=== PATIENT | female | born 1985 | race African-American/Black ===

== ENCOUNTER 2017-01-30 19:26 | Outpatient (CLI) | payer SELFPAY ==
[2017-01-30 20:27] VITALS: BP 129/80
== END 2017-01-30 20:32 | disposition home or self-care (01) ==
LOC: TRG 19:26
PROVIDERS: ATTEND Obstetrics & Gynecology
DX: O48.0 Post-term pregnancy (principal); Z3A.40 40 weeks gestation of pregnancy
CPT/HCPCS: 59025

== ENCOUNTER 2017-01-31 02:41 | Inpatient (IN) | payer OTHER ==
[2017-01-31] MEDS ORDERED: MINERAL OIL PO PRN (03:20)
[2017-01-31] MEDS ORDERED: ZOFRAN IV PRN ×2 (03:20→08:01)
[2017-01-31] MEDS ORDERED: XYLOCAINE 2% INFILTRATI ONE (03:20)
[2017-01-31] MEDS ORDERED: BRETHINE IVP PRN (03:20)
[2017-01-31] MEDS ORDERED: STADOL IV PRN (03:20)
[2017-01-31] MEDS ORDERED: NARCAN 0.4 MG/1 ML IV PRN (03:20)
[2017-01-31] MEDS ORDERED: BRETHINE SUB-Q PRN (03:20)
[2017-01-31] MEDS ORDERED: SUBLIMAZE IV PRN (03:20)
[2017-01-31] MEDS ORDERED: ePHEDrine SULFATE IV PRN ×2 (03:20→04:56)
--- NOTE | 2017-01-31 03:24 | History and Physical Report ---
History of Present Illness Date of examination: 01/31/17 Chief complaint: Labor History of present illness: Pt is a 31yo HF EDC 01/30/17; EGA 40 1/7 weeks presents complaining of RUC' s q 3-4 mins. She received care with Dr Mary Hendrickson since 16 weeks and course has been complicated by Gestational DM for which she is followed by Perinatology ([facility]). records are available and GBS is Negative. Past History Past Medical History: diabetes (Gestational DM) Past Surgical History: no surgical history Family/Genetic History: none Social history: no significant social history, - Obstetrical History Expected Date of Delivery: 01/30/17 Actual Gestation: 40 Week(s) 1 Day(s) : 3 Medications and Allergies Allergies Allergy/AdvReac Type Severity Reaction Status Date / Time No Known Allergies Allergy Verified 01/31/17 03:28 Review of Systems All systems: negative - Vital Signs Vital signs: Vital Signs Pulse Pulse Ox 78 93 01/31/17 02:59 01/31/17 02:59 Temp Pulse Resp BP Pulse Ox 97.9 F 85 18 145/75 96 01/31/17 03:13 01/31/17 03:15 01/31/17 03:13 01/31/17 03:00 01/31/17 03:15 - Physical Exam Breasts: Positive: deferred Cardiovascular: Regular rate Lungs: Positive: Clear to auscultation Abdomen: Positive: normal appearance Genitourinary (Female): Positive: normal external genitalia Vagina: Positive: normal moisture Uterus: Positive: enlarged Anus/Rectum: Positive: normal perianal skin Extremities: Positive: normal - Obstetrical FHR: category 1 Uterine Contraction Monitor Mode: External Cervical Dilatation: 6 Cervical Effacement Percentage: 90 station: -1 Uterine Contraction Pattern: Regular Uterine Tone Measurement Phase: Contraction Uterine Contraction Intensity: Moderate Results Result Diagrams: 01/31/17 03:30 All other labs normal. Assessment and Plan - Patient Problems (1) 40 weeks gestation of Onset Date: 01/31/17 Current Visit: Yes Status: Acute Plan to address problem: A: IUP @ 40 1/7 weeks in labor GDM - stable P: Admit to L&D for expectant vaginal delivery BS management (2) Gestational diabetes mellitus (GDM) Onset Date: 01/31/17 Current Visit: Yes Status: Acute Qualifiers: Gestational diabetes mellitus control: diet-controlled Trimester: third trimester Qualified Code(s): O24.410 - Gestational diabetes mellitus in , diet controlled
[2017-01-31 03:44] LABS: Hematocrit 35.6 % (30.3-42.9); Hemoglobin 11.7 gm/dl (10.1-14.3); Mean Corpuscular HGB Conc 33 % (30-34); Mean Corpuscular Hemoglobin 26 pg (28-32); Mean Corpuscular Volume 80 fl (79-97); Platelet Count 159 K/mm3 (140-440); Red Blood Count 4.43 M/mm3 (3.65-5.03); Red Cell Distribution Width 14.2 % (13.2-15.2); White Blood Count 7.7 K/mm3 (4.5-11.0)
[2017-01-31] MEDS: LACTATED RINGERS 1,000 ML IV SCH ×2 (03:51→04:25)
[2017-01-31] MEDS ORDERED: PITOCin/NS 20 UNIT/1000ML DRIP 20 UNITS/1,000 ML BAG IV SCH ×2 (04:00→09:00)
[2017-01-31] MEDS ORDERED: PITOCin/NS 30 UNIT/500ML 30 UNITS/500 ML BAG IV SCH (04:00)
[2017-01-31] MEDS ORDERED: ePHEDrine SULFATE ONE (04:13)
[2017-01-31] MEDS ORDERED: NARCAN 2 MG/2 ML IV PRN (04:56)
--- NOTE | 2017-01-31 04:56 | Anesthesia Consultation ---
Anesthesia Consult and Med Hx Date of service: 01/31/17 - Airway Anesthetic Teeth Evaluation: Good ROM Head & Neck: Adequate Mental/Hyoid Distance: Adequate Mallampati Class: Class II Intubation Access Assessment: Probably Good - Pulmonary Exam CTA: Yes - Cardiac Exam Cardiac Exam: RRR - Pre-Operative Health Status ASA Pre-Surgery Classification: ASA2 Proposed Anesthetic Plan: Epidural - Pulmonary Hx Asthma: No COPD: No Hx Pneumonia: No - Cardiovascular System Hx Hypertension: No - Central Nervous System Hx Seizures: No Hx Psychiatric Problems: No - Endocrine Hx Renal Disease: No Hx End Stage Renal Disease: No Hx Hypothyroidism: No Hx Hyperthyroidism: No - Hematic Hx Anemia: No Hx Sickle Cell Disease: No - Other Systems Hx Alcohol Use: No
[2017-01-31] MEDS ORDERED: fentaNYL-BUPIV 2 MCG/ML-0.125% 200 MCG/100 ML BAG EPIDURAL SCH (05:00)
--- NOTE | 2017-01-31 07:46 | Procedure Note ---
OB Delivery Note - Delivery Date of Delivery: 01/31/17 Surgeon: ROOPA ESQUIVEL Estimated blood loss: 300cc - Vaginal Delivery presentation: vertex Delivery position: OA Delivery induction: none Delivery augmentation: rupture of membranes, pitocin Delivery monitor: external FHT, external uterine Route of delivery: Delivery placenta: spontaneous Delivery cord: 3 umbilical vessels Episiotomy: none Delivery laceration: 2nd degree (perineal) Delivery repair: vicryl Anesthesia: epidural Delivery comments: delivered OA and placed on Mom's chest for [id number] bonding and delayed cord clamping. - Infant A at 1 minute: 8 at 5 minutes: 9 Gender: Male (4872gms)
[2017-01-31] MEDS ORDERED: PHENERGAN PO PRN (08:01)
[2017-01-31] MEDS ORDERED: LANSINOH TP PRN (08:01)
[2017-01-31] MEDS ORDERED: TUCKS PAD TP PRN (08:01)
[2017-01-31] MEDS ORDERED: NORCO 5/325 PO PRN (08:01)
[2017-01-31] MEDS ORDERED: PHENERGAN PR PRN (08:01)
[2017-01-31] MEDS ORDERED: MILK OF MAGNESIA PO PRN (08:01)
[2017-01-31] MEDS ORDERED: TYLENOL PO PRN (08:01)
[2017-01-31] MEDS ORDERED: DULCOLAX PR PRN (08:01)
[2017-01-31] MEDS ORDERED: BENADRYL PO PRN (08:01)
[2017-01-31] MEDS ORDERED: SODIUM CHLORIDE FLUSH SYRINGE 10 ML IV NR (09:00)
[2017-01-31] MEDS: COLACE PO SCH ×2 (10:00→21:40)
[2017-01-31] MEDS: FEOSOL PO SCH ×2 (12:00→21:40)
[2017-01-31] MEDS: PRENATAL VITAMIN PO SCH (12:00)
[2017-01-31] MEDS: MOTRIN PO SCH ×3 (12:00→21:41)
[2017-01-31] MEDS ORDERED: FLUARIX QUAD 2016-2017(36 MOS+) IM ONE (12:00)
[2017-01-31] MEDS ORDERED: PITOCin/NS 20 UNIT/1000ML DRIP 20,000 MILLIUNITS/1,000 ML BAG IV ONE (12:08)
[2017-01-31 20:56] LABS: Hematocrit 28.1 % (30.3-42.9); Hemoglobin 9.2 gm/dl (10.1-14.3)
[2017-01-31] MEDS: SENOKOT S PO SCH (21:41)
[2017-02-01] MEDS: MOTRIN PO SCH ×4 (02:57→21:08)
[2017-02-01] MEDS ORDERED: BOOSTRIX IM ONE (06:00)
[2017-02-01] MEDS ORDERED: M-M-R II VACCINE SUB-Q ONE (08:01)
[2017-02-01] MEDS: FEOSOL PO SCH ×2 (10:15→21:03)
[2017-02-01] MEDS: PRENATAL VITAMIN PO SCH (10:15)
[2017-02-01] MEDS: COLACE PO SCH ×2 (10:15→21:03)
--- NOTE | 2017-02-01 10:59 | Progress Note ---
Assessment and Plan - Patient Problems (1) 40 weeks gestation of Onset Date: 01/31/17 Current Visit: Yes Status: Resolved (2) Gestational diabetes mellitus (GDM) Onset Date: 01/31/17 Current Visit: Yes Status: Resolved Qualifiers: Gestational diabetes mellitus control: diet-controlled Trimester: third trimester Qualified Code(s): O24.410 - Gestational diabetes mellitus in , diet controlled (3) (normal spontaneous vaginal delivery) Onset Date: 02/01/17 Current Visit: Yes Status: Resolved Plan to address problem: A: S/P - PPD #1 Doing well GDM - stable P: May go home tomorrow Subjective - Subjective Date of service: 02/01/17 Principal diagnosis: s/p - PPD #1 Interval history: Pt is feeling well without complaints. Bleeding improved. Patient reports: appetite normal, voiding normally, pain well controlled, flatus , ambulating normally : doing well, bottle feeding Objective - Vital Signs Latest vital signs: Vital Signs Temp Pulse Resp BP 02/01/17 08:38 98.3 F 84 16 119/62 02/01/17 00:00 98.6 F 77 16 134/74 01/31/17 19:30 98.6 F 77 16 127/72 01/31/17 16:45 98.7 F 78 18 122/72 Intake and Output 01/31/17 02/01/17 02/01/17 22:59 06:59 14:59 Intake Total 1880 300 Output Total 500 Balance 1380 300 Intake: IV 1000 PITOCin/NS 20 UNIT/1000ML 1000 DRIP 20,000 milliunits In 1,000 ml As IV .[facility] Rx#:[id number] Oral 480 Intake, Free Water 400 300 Output: Urine 500 Void 500 Other: Total, Intake Amount 480 Total, Output Amount 500 # Voids Void 1 - Exam Breasts: Present: deferred Cardiovascular: Present: Regular rate Lungs: Present: Clear to auscultation Abdomen: Present: normal appearance Uterus: Present: normal, firm, fundal height below umbilicus Extremities: Present: normal - Labs Labs: Abnormal lab results 01/31/17 01/31/17 Range/Units 20:41 21:48 Hgb 9.2 L (10.1-14.3) gm/dl Hct 28.1 L D (30.3-42.9) % POC Glucose 108 H (70-105) Laboratory Tests 01/31/17 01/31/17 01/31/17 03:12 03:30 03:30 WBC 7.7 RBC 4.43 Hgb 11.7 Hct 35.6 MCV 80 MCH 26 L MCHC 33 RDW 14.2 Plt Count 159 POC Glucose 94 Blood Type A POSITIVE Antibody Screen TNR MIGNON Antibody Screen Negative 01/31/17 01/31/17 01/31/17 19:13 20:41 21:48 WBC RBC Hgb 9.2 L Hct 28.1 L D MCV MCH MCHC RDW Plt Count POC Glucose 89 108 H Blood Type Antibody Screen MIGNON Antibody Screen 02/01/17 07:33 WBC RBC Hgb Hct MCV MCH MCHC RDW Plt Count POC Glucose 75 Blood Type Antibody Screen MIGNON Antibody Screen
--- NOTE | 2017-02-01 11:04 | Discharge Summary ---
Providers - Providers Date of Admission: 01/31/17 03:30 Date of discharge: 02/02/17 Attending physician: ROOPA ESQUIVEL Primary care physician: ROOPA ESQUIVEL Hospitalization Reason for admission: active labor, IUP at term Delivery: Episiotomy: none Laceration: 2nd degree (perineal) Incision: normal Other procedures: none complications: none Discharge diagnosis: IUP at term delivered [place] baby: male Hospital course: Unremarkable. Condition at discharge: Good Disposition: DISCHARGED TO HOME OR SELFCARE - Discharge Diagnoses (1) 40 weeks gestation of Status: Resolved (2) Gestational diabetes mellitus (GDM) Status: Resolved Qualifiers: Gestational diabetes mellitus control: diet-controlled Trimester: third trimester Qualified Code(s): O24.410 - Gestational diabetes mellitus in , diet controlled (3) (normal spontaneous vaginal delivery) Status: Resolved Plan - Discharge Medications Prescriptions: Ferrous Sulfate [Feosol 325 MG tab] 325 mg PO BID #60 tablet Ibuprofen [Motrin 600 MG tab] 600 mg PO Q6H #30 tablet Vit-Fe Fumar-FA [ Vitamin] 1 each PO QDAY #30 tablet - Provider Discharge Summary Activity: routine, no sex for 6 weeks, no heavy lifting 4 weeks, no strenuous exercise Diet: routine Instructions: routine Additional instructions: [] Smoking cessation referral if applicable(refer to patient education folder for contact #) [] Refer to [facility] Booklet Call your doctor immediately for: * Fever > 100.5 * Heavy vaginal bleeding ( >1 pad per hour) * Severe persistent headache * Shortness of breath * Reddened, hot, painful area to leg or breast * Drainage or odor from incision. * Keep incision clean and dry at all times and follow doctor's instructions regarding bathing/showering - Follow up plan Follow up: ROOPA ESQUIVEL MD [Primary Care Provider] - 6 Weeks
[2017-02-01] MEDS ORDERED: FLUARIX QUAD 2016-2017(36 MOS+) IM ONE ×2 (12:00→17:45)
[2017-02-01] MEDS: SENOKOT S PO SCH (21:04)
[2017-02-02] MEDS: MOTRIN PO SCH (03:08)
[2017-02-02 12:45] VITALS: BP 130/80
== END 2017-02-02 11:30 | disposition home or self-care (01) | DRG 775 ==
LOC: TRG 02:41 → LD 03:30 → OB 09:10
PROVIDERS: ADMIT Obstetrics & Gynecology; ATTEND Obstetrics & Gynecology
PROC: 10E0XZZ Delivery of Products of Conception, External Approach (ICD-10-PCS; principal; 2017-01-31)
PROC: 0KQM0ZZ Repair Perineum Muscle, Open Approach (ICD-10-PCS; 2017-01-31)
PROC: 3E0S3CZ (ICD-10-PCS; 2017-01-31)
PROC: 00HU33Z Insertion of Infusion Device into Spinal Canal, Percutaneous Approach (ICD-10-PCS; 2017-01-31)
DX: O24.410 Gestational diabetes mellitus in pregnancy, diet controlled (principal); O70.1 Second degree perineal laceration during delivery; Z3A.40 40 weeks gestation of pregnancy; Z37.0 Single live birth
CPT/HCPCS: 36415; 82962; 85014; 85018; 85027; 86850; 86900; 86901; 90471; 90686; 90715; 99211; G0463; J2590; J3010; J7120

== ENCOUNTER 2019-11-19 07:37 | Inpatient (IN) | payer MEDICAID, OTHER ==
[2019-11-19] MEDS ORDERED: LACTATED RINGERS 1,000 ML ONE (08:24)
[2019-11-19] MEDS ORDERED: TERBUTALINE 1 MG/1 ML INJ SUB-Q PRN (08:33)
[2019-11-19] MEDS ORDERED: AMPICILLIN/NS 2 GM/100 ML 2 GM/100 ML BAG IV ONE (08:33)
[2019-11-19] MEDS ORDERED: ePHEDrine SULFATE 50 MG/1 ML INJ IV PRN (08:33)
[2019-11-19] MEDS ORDERED: LIDOCAINE (2%) 20 MG/1 ML VIAL 20 ML MDV INFILTRATI ONE (08:33)
[2019-11-19] MEDS ORDERED: fentaNYL 100 MCG/2 ML INJ IV PRN (08:33)
--- NOTE | 2019-11-19 08:39 | History and Physical Report ---
History of Present Illness Date of examination: 11/19/19 Date of admission: 11/19/2019. Chief complaint: Labor History of present illness: 34 year old presents to L&D in active advanced labor (completely dilated upon arrival). Patient denies leaking of fluid or vaginal bleeding. Patient states she received care at [facility] but recor ds are not available. Patient states she has not been to any of visits for the past 2 months. She states her last ultrasound was done at 23 weeks gestation and was normal. EDC 11/27/2019. Patient states she took her sugar test at her last visit and that it was normal. Patient denies any complications with this . She reports she has had 3 normal vaginal deliveries, all of large babies (largest 10 lb. 6 oz.), without complications. Patient states she is not taking any medications. She denies drug allergies. 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 denies: smoking, alcohol abuse, prescription drug abuse, IV drug use - Obstetrical History Expected Date of Delivery: 11/27/19 Actual Gestation: 38 Week(s) 6 Day(s) : 4 Para: 3 Hx # Term Pregnancies: 3 Number of Pregnancies: 0 Spontaneous Abortions: 0 Induced : 0 Number of Living Children: 3 Medications and Allergies Allergies Allergy/AdvReac Type Severity Reaction Status Date / Time No Known Allergies Allergy Verified 01/31/17 03:28 Home Medications Medication Instructions Recorded Confirmed Last Taken Type Ferrous Sulfate [Feosol 325 MG tab] 325 mg PO BID #60 tablet 02/01/17 Unknown Rx Ibuprofen [Motrin 600 MG tab] 600 mg PO Q6H #30 tablet 02/01/17 Unknown Rx Vit-Fe Fumar-FA [ 1 each PO QDAY #30 tablet 02/01/17 Unknown Rx Vitamin] Active Meds: Active Medications Ephedrine Sulfate (Ephedrine Sulfate) 10 mg IV Q2M PRN PRN Reason: Hypotension Fentanyl (Sublimaze) 100 mcg IV Q2H PRN PRN Reason: Labor Pain Oxytocin/Sodium Chloride (Pitocin/Ns 20 Unit/1000ml Drip) 20 units in 1,000 mls @ 125 mls/hr IV DIRECT SIRI Lactated Ringer's (Lactated Ringers) 1,000 mls @ 125 mls/hr IV DIRECT SIRI Ampicillin Sodium (Ampicillin/Ns 2 Gm/100 Ml) 2 gm in 100 mls @ 100 mls/hr IV ONCE ONE; Protocol Stop: 11/19/19 09:32 Lidocaine (Xylocaine 2%) 20 ml INFILTRATI ONCE ONE Stop: 11/19/19 08:34 Terbutaline Sulfate (Brethine) 0.25 mg SUB-Q ONCE PRN PRN Reason: Hyperstimulation/Hypertonicity Review of Systems All systems: negative (contractions and urge to push) - Vital Signs Vital signs: Vital Signs Temp Pulse Resp BP Pulse Ox 98.0 F 94 H 22 120/73 100 11/19/19 08:06 11/19/19 08:06 11/19/19 08:06 11/19/19 08:06 11/19/19 08:06 Temp Pulse Resp BP Pulse Ox 98.0 F 91 H 22 141/72 100 11/19/19 08:06 11/19/19 08:20 11/19/19 08:06 11/19/19 08:20 11/19/19 08:06 - Physical Exam Abdomen: Positive: normal appearance, soft. Negative: distention, tenderness, g uarding, rigidity Genitourinary (Female): Positive: normal external genitalia, normal perenium. Negative: perineal/vulvar lesions (no lesions noted on inspection with bright light) Vagina: Positive: normal moisture Uterus: Positive: enlarged (size greater than dates; US ordered and MD notified) Anus/Rectum: Positive: normal perianal skin - Obstetrical FHR: category 1 Uterine Contraction Monitor Mode: External Cervical Dilatation: 10 Cervical Effacement Percentage: 100 station: -1, BBOW Uterine Contraction Pattern: Regular Uterine Contraction Intensity: Strong/Firm Results Result Diagrams: 11/19/19 08:44 All other labs normal. Assessment and Plan A: at 38 weeks, 6 days gestation. Active advanced labor (fully dilated with urge to push upon arrival). GBS unknown. No records available. Poor care (noncompliant with keeping visits). P: Admit. Request records. Draw labs. GBS prophylaxis. US for EFW and placental location. Consulted with Dr. Becerra re: this patient and all of the above and possibility of a large baby with unknown EFW (US pending) but feels large per Leopolds maneuvers. US obtained and EFW reported to me at 09:39. EFW [address] Becerra and asked him to come to hospital for delivery. Informed patient.
[2019-11-19] MEDS ORDERED: LACTATED RINGERS 1,000 ML IV SCH (09:00)
[2019-11-19] MEDS ORDERED: OXYTOCIN 20 UNIT/1000ML DRIP 20 UNITS/1,000 ML BAG IV SCH (09:00)
[2019-11-19 09:12] LABS: Hemoglobin 11.9 gm/dl (10.1-14.3); Mean Corpuscular HGB Conc 33 % (30-34); Mean Corpuscular Volume 81 fl (79-97); Platelet Count 154 K/mm3 (140-440); Red Blood Count 4.46 M/mm3 (3.65-5.03); Red Cell Distribution Width 13.8 % (13.2-15.2)
[2019-11-19] MEDS ORDERED: miSOPROStol 200 MCG TAB ONE (09:14)
[2019-11-19] MEDS ORDERED: MINERAL OIL 30 ML ORAL LIQD ONE (09:15)
[2019-11-19 10:23] LABS: Hepatitis C Virus Antibody Non-Reactive (NonReactive)
--- NOTE | 2019-11-19 10:24 | Ultrasound Report ---
ULTRASOUND OBSTETRIC, limited Indication: Location of placenta; EFW Findings: There is a single intrauterine . BPD = 9.7 cm = 39 weeks, 3 day(s). Head circumference = 33.2 cm = 37 weeks, 6 day(s). Abdominal circumference = 40 cm which is out of range Femur length = 7.7 cm = 39 weeks, 4 day(s). Overall estimated sonographic age = 39 weeks, 0 day(s). heart rate is 147 beats per minute. Estimated weight is 4529 grams position is cephalic. Placenta is in the fundus and grade 3 . Impression: 1. Single living intrauterine with estimated sonographic age of 39 weeks, 0 day(s). 2. No sonographic abnormality identified. Signer Name: Romero Lynn MD Signed: 11/19/2019 10:20 AM Workstation Name: [id number]
[2019-11-19] MEDS ORDERED: OXYTOCIN 10 UNIT/1 ML INJ ONE (10:35)
[2019-11-19] MEDS ORDERED: WITCH HAZEL/ GLYCERIN PAD TP PRN (11:19)
[2019-11-19] MEDS ORDERED: LANOLIN/ZINC/DIMETHICONE (LANSINOH) 7 GM TP PRN (11:19)
[2019-11-19] MEDS ORDERED: MAGNESIUM HYDROXIDE (MOM) ORAL LIQD UDC PO PRN (11:19)
--- NOTE | 2019-11-19 11:30 | Procedure Note ---
OB Delivery Note - Delivery Date of Delivery: 11/19/19 Surgeon: LATANYA GUALLPA Estimated blood loss: other (400 cc) - Vaginal Delivery presentation: vertex Delivery position: OA Intrapartum events: none (limited care), precipitous labor- <3hr, shoulder dystocia, other(please specify) (macrosomic baby) Delivery induction: none Delivery monitor: external FHT, external uterine Route of delivery: Delivery placenta: spontaneous Delivery cord: 3 umbilical vessels Episiotomy: none Delivery laceration: 1st degree (repaired with 3-0 vicryl) Delivery repair: vicryl Anesthesia: local Delivery comments: Spontaneous vaginal delivery at 10:36 of 11 lb. 9.8 oz. liveborn female infant over 1st degree perineal laceration with apgars of 8/9. Left anterior shoulder dystocia resolved with McRobert's maneuver and delivery of posterior arm. Spontaneous cry and respirations. 3 vessel cord double clamped and cut. Baby taken to radiant warmer to be evaluated by nursery staff. Cord blood obtained. Spontaneous delivery of intact placenta and membranes by fay mechanism. Pitocin to IV fluids after delivery of placenta. EBL 400 cc. Fundus massaged and was firm at 1 FB below umbilicus. Patient's bladder was full; red rubber catheter inserted. Cytotec 800 micrograms given rectally. Bleeding was controlled. Small first degree perineal laceration repaired with 3-0 vicryl. Vaginal sweep negative. Sponge count correct. Mother and baby stable. Baby moving all extremities well.
[2019-11-19] MEDS ORDERED: miSOPROStol 200 MCG TAB PR ONE (11:33)
[2019-11-19] MEDS: HYDROcodone/ACETAMINOPHEN 5-325 MG TAB PO PRN ×2 (13:47→21:44)
[2019-11-19] MEDS: IBUPROFEN 600 MG TAB PO SCH ×2 (18:29→23:52)
[2019-11-19] MEDS: DOCUSATE SODIUM 100 MG CAP PO SCH (21:44)
[2019-11-19 22:56] LABS: Hematocrit 28.5 % (30.3-42.9); Hemoglobin 9.2 gm/dl (10.1-14.3)
[2019-11-20] MEDS: HYDROcodone/ACETAMINOPHEN 5-325 MG TAB PO PRN (05:11)
[2019-11-20] MEDS: IBUPROFEN 600 MG TAB PO SCH ×3 (05:18→17:26)
[2019-11-20] MEDS: DOCUSATE SODIUM 100 MG CAP PO SCH ×2 (09:41→22:09)
--- NOTE | 2019-11-20 10:16 | Progress Note ---
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 Delivery Procedure Note Patient reports: appetite normal, voiding normally, pain well controlled, ambulating normally, no dizzy ambulation : doing well, bottle feeding Objective - Vital Signs Latest vital signs: Vital Signs Temp Pulse Resp BP BP Pulse Ox 11/20/19 08:01 97.9 F 77 18 137/86 96 11/20/19 06:11 18 11/20/19 05:18 18 11/20/19 05:16 98.8 F 18 134/80 11/20/19 05:11 18 11/20/19 00:52 18 11/19/19 23:52 98.7 F 85 16 103/55 98 11/19/19 22:44 18 11/19/19 21:44 18 11/19/19 21:30 98.1 F 84 18 116/63 95 11/19/19 19:29 18 11/19/19 17:25 98.4 F 99 H 18 124/73 99 11/19/19 13:30 98.1 F 105 H 18 122/76 97 11/19/19 12:00 98.3 F 20 98 11/19/19 11:49 100 H 130/69 11/19/19 11:43 101 H 119/65 11/19/19 11:05 117 H 97 11/19/19 11:00 97 H 99 11/19/19 10:57 93 H 136/66 11/19/19 10:55 102 H 93 11/19/19 10:50 100 H 98 11/19/19 10:45 101 H 98 11/19/19 10:43 102 H 132/63 11/19/19 10:40 55 L 83 L 11/19/19 10:39 108 H 112/68 83 L Intake and Output 11/19/19 11/20/19 11/20/19 23:59 07:59 15:59 Intake Total 960 Output Total 1050 Balance -90 Intake: Oral 600 Intake, Free Water 360 Output: Urine 1050 Void 1050 Other: Total, Intake Amount 120 Total, Output Amount 300 # Voids Void 1 - Exam Cardiovascular: Present: Regular rate Lungs: Present: Clear to auscultation Abdomen: Present: normal appearance, soft Vulva: both: laceration/episiotomy Uterus: Present: normal, firm, fundal height above umbilicus (displaced to right) Extremities: Present: normal Comments: scant lochia - Labs Labs: Abnormal lab results 11/19/19 Range/Units 22:41 Hgb 9.2 L (10.1-14.3) gm/dl Hct 28.5 L D (30.3-42.9) %
[2019-11-20] MEDS: FERROUS SULFATE 325 MG TAB PO SCH ×2 (11:29→22:09)
[2019-11-21] MEDS: IBUPROFEN 600 MG TAB PO SCH (05:50)
[2019-11-21] MEDS ORDERED: TETANUS,DIPH,PERTUSS(ACELL) VACCINE 0.5 ML SYRINGE IM ONE (06:00)
--- NOTE | 2019-11-21 06:55 | Discharge Summary ---
Providers - Providers Date of Admission: 11/19/19 08:52 Date of discharge: 11/21/19 Attending physician: HIMA BATES Primary care physician: HIMA BATES Hospitalization Reason for admission: active labor, IUP at term Delivery: Procedure details: Delivery complicated by shoulder dystocia due to macrosomia. Episiotomy: none Laceration: 1st degree Other procedures: none complications: none Discharge diagnosis: IUP at term delivered [place] baby: female Hospital course: Uncomplicated Condition at discharge: Stable Disposition: DC-01 TO HOME OR SELFCARE - Discharge Diagnoses (1) Status post normal vaginal delivery Status: Acute (2) Anemia due to blood loss, acute Status: Acute Comment: Asymptomatic Continue ferrous sulfate 325mg by mouth twice daily Eat iron-rich foods Plan - Discharge Medications Prescriptions: Ferrous Sulfate [Feosol 325 MG tab] 325 mg PO BID #60 tablet - Provider Discharge Summary Activity: routine, no sex for 6 weeks, no heavy lifting 4 weeks, no strenuous exercise Diet: routine Instructions: routine Additional instructions: [] Smoking cessation referral if applicable(refer to patient education folder for contact #) [] Refer to [facility] Booklet Call your doctor immediately for: * Fever > 100.5 * Heavy vaginal bleeding ( >1 pad per hour) * Severe persistent headache * Shortness of breath * Reddened, hot, painful area to leg or breast * Drainage or odor from incision. * Keep incision clean and dry at all times and follow doctor's instructions regarding bathing/showering - Follow up plan Follow up: HIMA BATES MD [Primary Care Provider] - 6 Weeks (Follow up at [facility] as needed or in 6 weeks for exam)
[2019-11-21] MEDS: DOCUSATE SODIUM 100 MG CAP PO SCH (09:38)
[2019-11-21] MEDS: FERROUS SULFATE 325 MG TAB PO SCH (09:38)
[2019-11-21 13:02] VITALS: BP 138/79
== END 2019-11-21 13:07 | disposition home or self-care (01) | DRG 806 ==
LOC: TRG 07:37 → LD 08:52 → OB 12:54
PROVIDERS: ADMIT Obstetrics & Gynecology; ATTEND Obstetrics & Gynecology
PROC: 10E0XZZ Delivery of Products of Conception, External Approach (ICD-10-PCS; principal; 2019-11-19)
PROC: 0HQ9XZZ Repair Perineum Skin, External Approach (ICD-10-PCS; 2019-11-19)
DX: O62.3 Precipitate labor (principal); D62 Acute posthemorrhagic anemia; Z37.0 Single live birth; Z3A.38 38 weeks gestation of pregnancy; Z90.49 Acquired absence of other specified parts of digestive tract; O66.0 Obstructed labor due to shoulder dystocia; O36.63X0 Maternal care for excessive fetal growth, third trimester, not applicable or unspecified; O70.0 First degree perineal laceration during delivery; O90.81 Anemia of the puerperium
CPT/HCPCS: 36415; 76816; 82962; 83036; 85014; 85018; 85027; 86592; 86706; 86762; 86803; 86850; 86870; 86900; 86901; 87806; 90715; 96374; G0378; J0290; J2590; J3010; J7120